=== PATIENT | male | born 1945 | race Caucasian/White ===

== ENCOUNTER → 2016-08-27 | Outpatient (CLI) | payer OTHER, MEDICARE ==
[~2016-08-27] MED LIST: ACET1TAB84 PO; ART2 PO; FENO160T PO; FEXO1TAB49 PO; LISI20TA PO; OMEP40CA41 PO; SIMV40TA2 PO; ZCR10 PO; ZNTT/150 PO
[2016-08-27 13:36] LABS: ALT/SGPT 33 U/L (12-78); AST/SGOT 24 U/L (15-37); BLOOD UREA NITROGEN 19 mg/dl (7-18); BUN/CREATININE RATIO 15.5 (10-20); CALCIUM 9.1 mg/dl (8.5-10.1); CARBON DIOXIDE 31 mmol/L (21-32); CHLORIDE 104 mmol/L (98-107); GLUCOSE 129 mg/dl (70-99); POTASSIUM 3.7 mmol/L (3.5-5.1); SODIUM 142 mmol/L (136-145)
[2016-08-27 13:39] LABS: CHOLESTEROL 157 mg/dl (0-200); CHOLESTEROL/HDL RATIO 4.9; HDL CHOLESTEROL 32 mg/dl; LDL CHOLESTEROL CALCULATED 84 mg/dl; TRIGLYCERIDES 206 mg/dl (0-150); VERY LOW DENSITY LIPOPROT CALC 41 mg/dl
== END | disposition home or self-care (01) ==
LOC: C.LABMFLN 09:10
PROVIDERS: ATTEND Family Medicine
DX: I10 Essential (primary) hypertension (principal); E78.00 Pure hypercholesterolemia, unspecified

== ENCOUNTER → 2016-09-02 | Outpatient (CLI) | payer OTHER, MEDICARE ==
[2016-09-02 13:59] LABS: ESTIMATED AVERAGE GLUCOSE 131 mg/dl; HA1C FLAG Normal (Normal)
== END ==
LOC: C.LABMFLN 07:56
PROVIDERS: ATTEND Family Medicine
DX: R73.09 Other abnormal glucose (principal)

== ENCOUNTER → 2016-09-10 | Outpatient (CLI) | payer OTHER, MEDICARE ==
[2016-09-10 15:13] VITALS: BP 117/67; PULSE 64; TEMP 36.8; O2SAT 96
--- NOTE | 2016-09-10 16:19 | Radiation Oncology Follow-Up ---
Radiation Oncology Follow-Up Date of Visit Sep 10, 2016. (Uma Benton PA-C) Reason For Visit One-month follow-up (Uma Benton PA-C) Radiation Completion Date 08/02/16 (Uma Benton PA-C) Diagnosis (1) Prostate ca Status: Acute Onset Date: 01/06/2014 Location: both lobes of the prostate Histology Subtype: adenocarcinoma Stage: ll Permanent Comment: STAGING: Prostate, adenocarcinoma, leo 4 + 3, pT2c, post RP PSA 0.04 TREATMENT: 1. Prostate biopsy - 10/21/2013 2. Radical Prostatectomy - Dr. Newton Lopez - 01/07/2014 3. Hormone suppression was not required 4. Status post salvage radiation therapy. Treatment was completed 08/02/2016. He received 6840 cGy. Last Edited By: Uma Benton on Aug 05, 2016 13:43 (Uma Benton PA-C) History of Present Illness Mr. Beard is a 70-year-old gentleman who initially presented with an elevated PSA of 5.17 on 08/27/2013. He underwent a TRUS-guided prostate biopsy on 2013 which revealed prostate adenocarcinoma that was [place] 4+4. Prostate cancer was positive in 10/20 cores. The patient underwent a radical prostatectomy on 01/06/2014 underneath the supervision of Dr. Newton Lopez. Pathology revealed prostate adenocarcinoma that was [place] 4+3; there was no evidence of extraprostatic extension, seminal vesicle invasion and all the margins were negative. The patient's PSA was initially undetectable in February 2014, May 2014, July 2014. The patient's PSA was elevated to 0.016 on 11/15/2014, 0.028 on 05/16/2015, 0.03 on 08/16/2015 and 0.04 on 08/2015. Dr. Lopez discussed the options and recommended consideration for salvage radiation therapy based on his rising PSA. We are now seeing the patient in consultation discuss the role of radiation therapy. He completed salvage radiation therapy 08/02/2016. He received 6840 cGy. (Uma Benton PA-C) Interim History He has been doing well over this past month. His energy levels have steadily improved. Today's AUA score was 4. His AUA score at the end of treatment was for. He denies any dysuria or pressure. He completed expanded prostate cancer index composite for clinical practice and gave a score of 3 of 12 in urinary incontinence symptoms. He gave a score of 4 of 12 urinary irritation symptoms. He gave a score 1 of 12 bowel symptoms. He gave score 10 of 12 in sexual symptoms. He was score of 2 of 12 and hormonal vitality symptoms his total was 20 of 60. His only issues of late have been due to allergies. He had a rash on his arms and saw his PCP as well as problem with his ear. He is been prescribed medications and is doing better and his rash is clearing. 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 Home Medications Scheduled Acetaminophen (Tylenol Arthritis Ext Rel), 650 MG PO Q8HR PRN Fexofenadine Hcl (Marysol Allergy), 1 TAB PO DAILY Lisinopril/Hctz (Prinzide 20-12.5MG), 1 TAB PO DAILY Simvastatin (Zocor), 40 MG PO HS Trihexyphenidyl Hcl (Artane *), 2 MG PO DAILY Scheduled PRN Ranitidine (Zantac), 150 MG PO DAILY PRN for Indigestion Review of Systems Gastrointestinal: Symptoms: WNL GI Comments: No fiber supplements; Oral: Symptoms: No Problems Respiratory: Symptoms: WNL Urinary: Symptoms: WNL Comments: 0-1 void/night; Skin: Symptoms: No Problems (Uma Benton PA-C) Physical Exam Vital Signs Date Time Temp Pulse Resp B/P Pulse Ox O2 Delivery O2 Flow Rate FiO2 09/10/16 15:13 36.8 64 16 117/67 96 Fatigue: None General Appearance: no apparent distress Eyes: normal inspection, EOMI ENT: normal ENT inspection, hearing grossly normal Respiratory/Chest: lungs clear, no respiratory distress, no accessory muscle use Cardiovascular: regular rate, rhythm, no gallop, no murmur Abdomen: non tender, soft, no organomegaly Extremities: no pedal edema Neurologic/Psychiatric: no motor/sensory deficits, alert, normal mood/affect Skin: warm/dry, + pertinent finding (minimal rash of the upper extremities. Mild erythema on the volar surface of the upper extremities.) (Uma Benton PA-C) Laboratory Studies Test 08/27/16 07:42 09/02/16 08:03 09/10/16 15:48 Sodium Level 142 mmol/L (136-145) Potassium Level 3.7 mmol/L (3.5-5.1) Chloride Level 104 mmol/L (98-107) Carbon Dioxide Level 31 mmol/L (21-32) Anion Gap 7.0 mmol/L (3-11) Blood Urea Nitrogen 19 mg/dl (7-18) Creatinine 1.20 mg/dl (0.60-1.40) Estimated GFR () 69.6 Estimated GFR (Non- 60.1 BUN/Creatinine Ratio 15.5 (10-20) Random Glucose 129 mg/dl (70-99) Calcium Level 9.1 mg/dl (8.5-10.1) Aspartate Amino Transferase (AST) 24 U/L (15-37) Alanine Aminotransferase (ALT) 33 U/L (12-78) Triglycerides Level 206 mg/dl (0-150) Cholesterol Level 157 mg/dl (0-200) HDL Cholesterol 32 mg/dl LDL Cholesterol, Calculated 84 mg/dl VLDL Cholesterol, Calculated 41 mg/dl Cholesterol/HDL Ratio 4.9 Fasting Glucose 122 mg/dl (70-99) Estimated Average Glucose 131 mg/dl Hemoglobin A1c 6.2 % (4.5-5.6) (Uma Benton PA-C) Assessment & Plan Plan: A PSA was drawn today. He'll be notified as to results. Continue follow- up with Dr. Lopez he has an appointment scheduled. He was also seen today by Dr. Bob. We asked him to return to our office in 6 months. He may call her office if he has any questions or concerns in the interim. (Uma Benotn PA-C) I agree with note created by Uma Benton PA-C. I reviewed the patient's chart and information with her. I have examined and evaluated the patient. I reviewed relevant clinical information and answered the patient's and/or family' s questions. (Veeral. Bob MD) Total Time In Follow-Up I spent 15 minutes speaking to the patient performing examination. I spent 15 minutes reviewing information and completing this note. (Uma Benton PA-C) I spent 10 minutes examining and counseling the patient. (Veeral. Bob MD) Copy To Christopher Bolden M.D.; Newton Lopez MD, Urology
== END | disposition home or self-care (01) ==
LOC: C.ONC 14:46
PROVIDERS: ATTEND Physician Assistant Medical
DX: Z08 Encounter for follow-up examination after completed treatment for malignant neoplasm (principal); Z92.3 Personal history of irradiation; Z85.46 Personal history of malignant neoplasm of prostate

== ENCOUNTER → 2016-11-07 | Outpatient (CLI) | payer OTHER, MEDICARE ==
[2016-11-07 18:25] LABS: BLOOD UREA NITROGEN 20 mg/dl (7-18); BUN/CREATININE RATIO 18.4 (10-20)
[2016-11-07 18:29] LABS: PROSTATE SPECIFIC ANTIGEN < 0.010 ng/ml (0.000-4.000)
== END | disposition home or self-care (01) ==
LOC: C.LABMFLN 13:30
PROVIDERS: ATTEND Urology
DX: C61 Malignant neoplasm of prostate (principal)

== ENCOUNTER → 2017-03-03 | Outpatient (CLI) | payer OTHER, MEDICARE ==
[~2017-03-03] MED LIST changes: -SIMV40TA2 PO; -ZNTT/150 PO
[2017-03-03 13:30] LABS: ESTIMATED AVERAGE GLUCOSE 137 mg/dl; HA1C FLAG Normal (Normal)
[2017-03-03 13:41] LABS: ALT/SGPT 26 U/L (12-78); BLOOD UREA NITROGEN 20 mg/dl (7-18); BUN/CREATININE RATIO 16.3 (10-20); CALCIUM 9.3 mg/dl (8.5-10.1); CARBON DIOXIDE 28 mmol/L (21-32); CHLORIDE 105 mmol/L (98-107); GLUCOSE 135 mg/dl (70-99); POTASSIUM 3.7 mmol/L (3.5-5.1); SODIUM 140 mmol/L (136-145)
[2017-03-03 13:46] LABS: ALB/GLOB RATIO 1.2 (0.9-2); ALKALINE PHOSPHATASE 44 U/L (45-117); AST/SGOT 29 U/L (15-37); CHOLESTEROL 158 mg/dl (0-200); CHOLESTEROL/HDL RATIO 4.9; HDL CHOLESTEROL 32 mg/dl; LDL CHOLESTEROL CALCULATED 85 mg/dl; PROSTATE SPECIFIC ANTIGEN < 0.010 ng/ml (0.000-4.000); TRIGLYCERIDES 206 mg/dl (0-150); VERY LOW DENSITY LIPOPROT CALC 41 mg/dl
--- NOTE | 2017-04-01 07:44 | CODING QUERY MEDICAL NECESSITY ---
SUPPORTING DIAGNOSIS NEEDED A supporting diagnosis is required for the test/procedure performed on this patient in order for us to be reimbursed by the patient's insurance. Please provide a supporting diagnosis for the following test/procedure listed below next to the test name along with your signature. *If there is no additional diagnosis for this patient that would support the following test/procedure please document that below next to the test/procedure. Test(s)/Procedure(s) that require a supporting diagnosis: * PSA DIAGNOSIS: Provider Signature: Date: Thank you Kathrin Nagel [employer] Information Management Once completed, please kindly fax back to [phone] For questions please call [phone]
== END | disposition home or self-care (01) ==
LOC: C.LABMFLN 07:57
PROVIDERS: ATTEND Family Medicine
DX: N39.3 Stress incontinence (female) (male) (principal); I10 Essential (primary) hypertension; E78.00 Pure hypercholesterolemia, unspecified; R73.03 Prediabetes; C61 Malignant neoplasm of prostate

== ENCOUNTER → 2017-03-12 | Day surgery (SDC) | payer OTHER, MEDICARE ==
[2017-02-13 13:25] VITALS: Ht 167.6 cm; Wt 77.3 kg
[~2017-03-12] VITALS: Ht 167.6 cm; Wt 77.3 kg
[~2017-03-12] MED LIST changes: +500ML BSS 0.3ML EPI 1:1000PF IRRIG ONE; +ACETAMINOPHEN 325 MG TAB PO PRN; +AMVISC PLUS 0.8ML SYRINGE INT OCU ONE; +ATROPINE SULFATE 0.1 MG/ML 5ML SYR IV PRN; +AcetaZOLAMIDE 250 MG TAB PO SCH; +BETAXOLOL HCL 0.25% OP SUSP PER DROP CHARGE OPL SCH; +BRIMONIDINE TART 0.2% OP SOLN PER DROP CHARGE ONE; +BSS FLUSH ONE; +ENDOCOAT 0.85ML SYRINGE INT OCU ONE; +EpHEDrine SULFATE INJ 50 MG/ML AMP IV PRN; +EpINEphrine INJ 1MG/ML AMP 1 MG/ML AMP ONE; +LACTATED RINGER'S 1000ML 500 ML IV SCH; +LIDOCAINE 4% OP SOLN DROP CHARGE ONE; +LIDOCAINE 4% OP SOLN DROP CHARGE OPL SCH; +MIDAZOLAM HCL 1 MG/ML 2ML VIAL ONE; +MIX: 4ML BSS 1ML EPI 1:1000 PF INSTIL ONE; +MOXIFLOXACIN OPH SOLN PER DROP CHARGE ONE; +OCUCOAT 1 ML SOLN IO ONE; +POVIDONE-IODINE OP SOLN 30 ML BTL ONE; +PROPARACAINE 0.5% OP SOLN PER DROP CHARGE OPL SCH; +TOBRAMYCIN/DEXAMETHASONE OPH OINT PER APPLN CHARGE ONE
--- NOTE | 2017-03-12 08:57 | History & Physical Bridge - [place] ---
H&P Re-Evaluation Bridge Note: I have examined the patient, reviewed the History & Physical and in the interval since the performance of the History & Physical I have noted the following changes of clinical significance: No changes noted
[2017-03-12] MEDS: CYCLOPENTOLATE HCL 1% OP SOLN PER DROP CHARGE OPL SCH ×2 (09:53→09:58)
[2017-03-12] MEDS: PHENYLEPHRINE HCL 2.5% OP SOLN PER DROP CHARGE OPL SCH ×2 (09:55→09:59)
[2017-03-12] MEDS: TROPICAMIDE 1% OP SOLN PER DROP CHARGE OPL SCH ×2 (09:56→09:59)
[2017-03-12] MEDS: MOXIFLOXACIN OPH SOLN PER DROP CHARGE OPL SCH ×2 (09:57→10:04)
[2017-03-12] MEDS: LIDOCAINE HCL 1% MPF 2 ML VIAL ONE ×2 (11:33→11:35)
--- NOTE | 2017-03-12 11:36 | Discharge Instructions-SurgCtr ---
Discharge Instructions Date of Service Mar 12, 2017. Visit Reason for Visit: Cataract Left Eye Discharge Discharge Diagnosis / Problem: lens implant left eye Discharge Goals Goal(s): Improve function Activity Recommendations Activity Limitations: resume your previous activity Lifting Limitations: no more than 10 pounds Exercise/Sports Limitations: gradually increase as tolerated May Resume Sexual Activity: when tolerated Shower/Bathe: tomorrow Driving or Machine Use: resume 1 day after discharge Anesthesia . Post Anesthesia Instructions: If you have had General Anesthesia or IV Sedation: * Do not drive today. * Resume driving when surgeon permits. * Do not make important decisions or sign legal documents today. * Call surgeon for: 1. Temperature elevations greater than 101 degrees F. 2. Uncontrollable pain. 3. Excessive bleeding. 4. Persistent nausea and vomiting. 5. Medication intolerance (nausea, vomiting or rash). * For nausea and vomiting use only clear liquids such as: tea, soda, bouillon until nausea subsides, then gradually increase diet as tolerated. * If you have any concerns or questions, call your surgeon's office. If physician is unavailable and it is an emergency, call 911 or go to the nearest emergency room. . Instructions / Follow-Up Instructions / Follow-Up ACTIVITY RECOMMENDATIONS: * Light activities. * Mild irritation and blurred vision are common for the first few days. * You may walk outside, read, watch television. * Redness around the white part of the eye is common. MEDICATIONS: Resume previous medications unless instructed otherwise by your surgeon. * Take white Diamox (Acetazolamide) tablet at 3 pm today. Start all eye drops at 3 pm today: * Eye drops (today and tomorrow): Prednisone - one drop in operative eye every 3 hours while awake Ofloxacin - one drop in operative eye every 3 hours while awake SPECIAL CARE INSTRUCTIONS: * Tape plastic shield over eye to sleep at night. Call your doctor at with any concerns or problems. FOLLOW UP VISIT: Follow-up with Dr Campbell at [place] office as scheduled. Diet Recommendations Home Diet: no limitations Procedures Procedures Performed: cataract extraction with lens implant Pending Studies Studies pending at discharge: no Medical Emergencies . Who to Call and When: Medical Emergencies: If at any time you feel your situation is an emergency, please call 911 immediately. . Non-Emergent Contact Non-Emergency issues call your: [employer] Call Non-Emergent contact if: your pain is not controlled [phone] . . "Provider Documentation" section prepared by Percy Campbell. .
--- NOTE | 2017-03-12 11:38 | [facility] Operative Report ---
Operative Report Date of Service Mar 12, 2017. Operative Report 1. PREOPERATIVE DIAGNOSIS: Senile nuclear cataract, left eye. 2. POSTOPERATIVE DIAGNOSIS: Senile nuclear cataract, left eye. 3. PROCEDURE: Phacoemulsification of left cataract with posterior chamber lens implant, type [employer], model Hoya [id number], power +20.5 diopters. ANESTHESIA: Local standby. SURGEON: Dr. Campbell. COMPLICATIONS: None. OPERATING TIME: 10 minutes. 4. OPERATION AND FINDINGS: DESCRIPTION OF PROCEDURE: The left pupil was dilated. The anesthetic was administered using a topical technique. The left eye was prepped and draped. A speculum was placed. A clear corneal incision was formed. The chamber was filled with Amvisc Plus and Endocoat. Epinephrine solution was used. A paracentesis was placed. A capsulorrhexis was performed. The nucleus was hydrodissected. The lens was removed with phacoemulsification. Time was 2.70 seconds. The aspiration unit was used to remove the cortex. The capsule was filled with Amvisc Plus. The lens implant was folded and placed into the capsule. The incision was hydrated. The Amvisc was aspirated. The wound was secure. The chamber was deep. The pupil was round. Brimonidine, TobraDex ointment and Vigamox solution were placed. The speculum was removed. The patient was returned to the Recovery Room in stable condition. I attest to the content of the Intraoperative Record and any orders documented therein. Any exceptions are noted below. The scribe's documentation has been prepared in my presence, under my direction and personally reviewed by me in its entirety. I confirm that the note above accurately reflects all work, treatment, procedures, and medical decision making performed by me. I personally scribed for Percy Campbell M.D. ([email or web address]) on 03/12/17 at 11:38. Electronically submitted by Johanny Rodriguez ([email or web address]).
[2017-03-12 11:40] VITALS: TEMP 36.7
--- NOTE | 2017-03-12 11:59 | Anesthesiology Progress Note ---
Anesthesia Post Op Note Date & Time Mar 12, 2017 at 11:59 Vital Signs Pain Intensity: 0 Vital Signs Past 12 Hours Date Time Temp Pulse Resp B/P (MAP) Pulse Ox O2 Delivery O2 Flow Rate FiO2 03/12/17 11:40 36.7 63 10 117/70 (86) 96 Room Air 03/12/17 09:34 36.9 64 16 143/82 (102) 97 Room Air Notes Mental Status: alert / awake / arousable, participated in evaluation Pt Amnestic to Procedure: Yes Nausea / Vomiting: adequately controlled Pain: adequately controlled Airway Patency, RR, SpO2: stable & adequate BP & HR: stable & adequate Hydration State: stable & adequate Anesthetic Complications: no major complications apparent
[2017-03-12 12:06] VITALS: BP 121/71; PULSE 66; O2SAT 97
== END | disposition home or self-care (01) ==
LOC: X.SURG 08:48
PROVIDERS: ATTEND Specialist
DX: H25.12 Age-related nuclear cataract, left eye (principal); I10 Essential (primary) hypertension

== ENCOUNTER → 2017-03-24 | Outpatient (CLI) | payer OTHER, MEDICARE ==
[~2017-03-24] MED LIST changes: -500ML BSS 0.3ML EPI 1:1000PF IRRIG ONE; -ACETAMINOPHEN 325 MG TAB PO PRN; -AMVISC PLUS 0.8ML SYRINGE INT OCU ONE; -ATROPINE SULFATE 0.1 MG/ML 5ML SYR IV PRN; -AcetaZOLAMIDE 250 MG TAB PO SCH; -BETAXOLOL HCL 0.25% OP SUSP PER DROP CHARGE OPL SCH; -BRIMONIDINE TART 0.2% OP SOLN PER DROP CHARGE ONE; -BSS FLUSH ONE; -ENDOCOAT 0.85ML SYRINGE INT OCU ONE; -EpHEDrine SULFATE INJ 50 MG/ML AMP IV PRN; -EpINEphrine INJ 1MG/ML AMP 1 MG/ML AMP ONE; -LACTATED RINGER'S 1000ML 500 ML IV SCH; -LIDOCAINE 4% OP SOLN DROP CHARGE ONE; -LIDOCAINE 4% OP SOLN DROP CHARGE OPL SCH; -MIDAZOLAM HCL 1 MG/ML 2ML VIAL ONE; -MIX: 4ML BSS 1ML EPI 1:1000 PF INSTIL ONE; -MOXIFLOXACIN OPH SOLN PER DROP CHARGE ONE; -OCUCOAT 1 ML SOLN IO ONE; -POVIDONE-IODINE OP SOLN 30 ML BTL ONE; -PROPARACAINE 0.5% OP SOLN PER DROP CHARGE OPL SCH; -TOBRAMYCIN/DEXAMETHASONE OPH OINT PER APPLN CHARGE ONE
[2017-03-24 14:15] LABS: RATIO 3.2 mcg/mg (0-30.0)
== END | disposition home or self-care (01) ==
LOC: C.LABMFLN 09:54
PROVIDERS: ATTEND Family Medicine
DX: E11.9 Type 2 diabetes mellitus without complications (principal)

== ENCOUNTER → 2017-08-22 | Outpatient (CLI) | payer OTHER, MEDICARE ==
[2017-08-22 12:54] LABS: ALBUMIN 3.8 gm/dl (3.4-5.0); ALT/SGPT 28 U/L (12-78); BLOOD UREA NITROGEN 26 mg/dl (7-18); CALCIUM 9.3 mg/dl (8.5-10.1); CARBON DIOXIDE 29 mmol/L (21-32); CHOLESTEROL 137 mg/dl (0-200); CREATININE 1.16 mg/dl (0.60-1.40); GLUCOSE 125 mg/dl (70-99); POTASSIUM 3.9 mmol/L (3.5-5.1); SODIUM 138 mmol/L (136-145)
[2017-08-22 12:58] LABS: ALKALINE PHOSPHATASE 45 U/L (45-117); AST/SGOT 24 U/L (15-37); LDL CHOLESTEROL CALCULATED 82 mg/dl; TOTAL PROTEIN 7.3 gm/dl (6.4-8.2)
== END | disposition home or self-care (01) ==
LOC: C.LABMFLN 09:23
PROVIDERS: ATTEND Family Medicine
DX: R93.429 Abnormal radiologic findings on diagnostic imaging of unspecified kidney (principal); E78.00 Pure hypercholesterolemia, unspecified; E11.9 Type 2 diabetes mellitus without complications; N39.3 Stress incontinence (female) (male)

== ENCOUNTER → 2017-09-18 | Outpatient (CLI) | payer OTHER, MEDICARE ==
[~2017-09-18] MED LIST changes: +GLC/500 PO
[2017-09-18 13:12] VITALS: BP 118/56; PULSE 81; TEMP 36.7; O2SAT 94
--- NOTE | 2017-09-18 16:02 | Radiation Oncology Follow-Up ---
Radiation Oncology Follow-Up Date of Visit Sep 18, 2017. Reason For Visit Annual follow-up Radiation Completion Date 08/02/16 Diagnosis (1) Prostate ca Status: Acute Onset Date: 01/06/2014 Location: Both lobes of the prostate Histology Subtype: Adenocarcinoma Stage: ll Permanent Comment: STAGING: Prostate, adenocarcinoma, leo 4 + 3, pT2c, post RP PSA 0.04 TREATMENT: 1. Prostate biopsy - 10/21/2013 2. Radical Prostatectomy - Dr. Newton Lopez - 01/07/2014 3. Hormone suppression was not required 4. Status post salvage radiation therapy. Treatment was completed 08/02/2016. He received 6840 cGy. Last Edited By: Uma Benton on Aug 05, 2016 13:43 History of Present Illness Mr. Beard presented with an elevated PSA of 5.17 on 08/27/2013. He underwent a TRUS-guided prostate biopsy on 10/21/2013 which revealed prostate adenocarcinoma that was [place] 4+4. Prostate cancer was positive in 10/20 cores. The patient underwent a radical prostatectomy on 01/06/2014 underneath the supervision of Dr. Newton Lopez. Pathology revealed prostate adenocarcinoma that was [place] 4+3; there was no evidence of extraprostatic extension, seminal vesicle invasion and all the margins were negative. The patient's PSA was initially undetectable in February 2014, May 2014, July 2014. The patient's PSA was elevated to 0.016 on 11/15/2014, 0.028 on 05/16/2015, 0.03 on 08/16/2015 and 0.04 on 04/25/2016. Dr. Lopez discussed the options and recommended consideration for salvage radiation therapy based on his rising PSA. We are now seeing the patient in consultation discuss the role of radiation therapy. He completed salvage radiation therapy 08/02/2016. He received 6840 cGy. Interim History Please been doing well over the past year. He denies any change in urination. He gave an AUA score of 10. He completed and expanded prostate cancer index composite for clinical practice and gave a score of 3 of 12 and urinary incontinence symptoms. Gave a score of 2 of 12 and urinary irritation symptoms. He gives score of 6 of 12 and bowel symptoms. He gave a score of 10 of 12 in sexual symptoms. He gives score 2 of 12 and hormonal vitality symptoms. His total was 23 of 60. He had a recheck PSA August 22, 2017. And that was found to be less than 0.010. 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 Scheduled Acetaminophen (Tylenol Arthritis Ext Rel), 650 MG PO Q8HR PRN Fenofibrate (Tricor), 160 MG PO HS Fexofenadine Hcl (Marysol Allergy), 1 TAB PO QAM Lisinopril/Hctz (Prinzide 20-12.5MG), 1 TAB PO QAM Metformin Hcl (Glucophage), 500 MG PO BID Omeprazole (Prilosec), 40 MG PO every other day Simvastatin (Simvastatin), 10 MG PO HS Trihexyphenidyl Hcl (Artane *), 2 MG PO BID Review of Systems Gastrointestinal: Symptoms: WNL Oral: Symptoms: No Problems Respiratory: Symptoms: Moist Cough Sputum Character: green to white Urinary: Symptoms: Nocturia Comments: nocturiax1 Skin: Symptoms: No Problems Other Skin Symptoms: area left chest dermatits ,pruritis Physical Exam Vital Signs Date Time Temp Pulse Resp B/P (MAP) Pulse Ox O2 Delivery O2 Flow Rate FiO2 09/18/17 13:12 36.7 81 20 118/56 94 Fatigue: None General Appearance: no apparent distress Eyes: normal inspection, EOMI ENT: normal ENT inspection, hearing grossly normal Neck: no adenopathy, thyroid normal Respiratory/Chest: lungs clear, no respiratory distress, no accessory muscle use Cardiovascular: regular rate, rhythm, no gallop, no murmur Abdomen: non tender, soft, no organomegaly Genitourinary - Male: + pertinent finding (He has a well demarcated rash in the groin bilaterally. This is more intense on the right side compared to the left. This is erythematous and a darker red along the border.) Extremities: no pedal edema Neurologic/Psychiatric: no motor/sensory deficits, alert, normal mood/affect Skin: warm/dry Pain Management Patient Reports Pain: No Pain Management Plan He denies pain therefore requires no pain management. Laboratory Laboratory Results: were reviewed Laboratory Comments: Reviewed in the interim history. Pathology Pathology Results: were reviewed, and pertinent findings noted in HPI Imaging Imaging Studies: were reviewed, and pertinent findings noted in HPI Assessment & Plan Plan: He was seen and examined by Dr. Bob. He will continue regular follow- up with Dr. Lopez and his primary care physician. An order was given for a recheck PSA in 1 year. He will be seeing Dr. Lopze in 6 months. The rash of the groin is tinea cruris. He was instructed to use Lamisil. The issues with the bowel habits have been ongoing since the surgery. He was instructed to use Metamucil. He plans to use capsules rather than the powder. He may call our office if he has any questions or concerns in the interim. Assessment & Plan (Attending) I agree with note created by Uma Benton PA-C. I reviewed the patient's chart and information with her. I have examined and evaluated the patient. I reviewed relevant clinical information and answered the patient's and/or family' s questions. 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 I spent 15 minutes reviewing information and completing this note. [place] Total Time (Attending) In Follow-Up I spent 15 minutes examining and counseling the patient. SAP PI ARCHITECT Copy To Christopher Bolden M.D.; Newton Lopez MD, Urology
== END | disposition home or self-care (01) ==
LOC: C.ONC 13:06
PROVIDERS: ATTEND Physician Assistant Medical
DX: Z08 Encounter for follow-up examination after completed treatment for malignant neoplasm (principal); Z92.3 Personal history of irradiation; Z85.46 Personal history of malignant neoplasm of prostate